=== PATIENT | male | born 1995 | race Caucasian/White ===

== ENCOUNTER 2017-03-02 11:39 | Emergency (ER) | payer BC ==
--- NOTE | 2017-03-02 12:05 | RAD ---
CHEST 1 VIEW: Date: 03/02/17 HISTORY: Trauma. COMPARISON: None. FINDINGS: Lungs are clear. No pneumothorax or effusion. Cardiac silhouette and mediastinal contours within norm al limits. IMPRESSION: No acute intrathoracic abnormality. POS: [facility]
[2017-03-02] MEDS ORDERED: Ondansetron HCl/PF 4 MG/2 ML Vial ONE ×2 (12:10→13:08)
[2017-03-02] MEDS ORDERED: Fentanyl 100 MCG/2 ML VIAL ONE (12:10)
--- NOTE | 2017-03-02 12:10 | CT ---
CT OF CERVICAL SPINE PERFORMED WITHOUT CONTRAST ENHANCEMENT: Date: 03/02/17 HISTORY: Neck injury status post being injured by calf. FINDINGS: Vertebral bodies and disc spaces are normal in appearance. Facets are in normal alignment. There is n o canal or foraminal stenosis. There is no CT evidence of fracture. IMPRESSION: No CT evidence of fracture of the cervical spine. Findings telephoned to Dr. Haji at 1200 hours. CODE CR. POS: [facility]
--- NOTE | 2017-03-02 12:13 | CT ---
CT OF BRAIN PERFORMED WIHTOUT CONTRAST ENHANCEMENT: HISTORY: Head injury. FINDINGS: The ventricular and cisternal system is within normal limits. There are no signs of intracerebral he morrhage or extraaxial fluid collections. Mastoid air cells are clear. There is extensive mucosal d isease in the ethmoid air cells and the visualized portion of the left maxillary sinus is completely opacified. If the patient has had any type of facial trauma, CT of the facial bone region is recomme nded. IMPRESSION: 1. No acute intracranial abnormalities. 2. This report was telephoned to Dr. Haji at 1157 hours. CODE CR POS: [facility]
[2017-03-02] MEDS ORDERED: Adacel (T-DAP) 0.5 ML VIAL ONE (12:33)
== END 2017-03-02 13:23 | disposition home or self-care (01) ==
LOC: ERS 11:39
DX: S06.0X1A Concussion with loss of consciousness of 30 minutes or less, initial encounter (principal); S16.1XXA Strain of muscle, fascia and tendon at neck level, initial encounter; F90.9 Attention-deficit hyperactivity disorder, unspecified type; W55.22XA Struck by cow, initial encounter
CPT/HCPCS: 70450; 71010; 72125; 90471; 90715; 96374; 96375; 96376; 99292; G0390; J2405; J3010